=== PATIENT | male | born 2005 | race Caucasian/White ===

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

== ENCOUNTER 2024-08-07 15:25 | Outpatient (CLI) | payer BC, MEDICAID, SELFPAY ==
[2024-08-07 17:47] LABS: Calculated LDL 84 mg/dL (<100); Cholesterol 163 mg/dL (<200); HDL Cholesterol 50 mg/dL (>or=40); Triglyceride 149 mg/dL (<150)
== END 2024-08-07 15:26 | disposition home or self-care (01) ==
LOC: LBO 15:26
PROVIDERS: PCP Nurse Practitioner Family; Visit Provider Nurse Practitioner Family
DX: Z13.1 Encounter for screening for diabetes mellitus (principal); Z13.220 Encounter for screening for lipoid disorders
CPT/HCPCS: 36415; 80061; 83036